=== PATIENT | female | born 1995 | race Caucasian/White ===

== ENCOUNTER 2019-06-02 09:13 | Emergency (ER) | payer MEDICAID ==
[~2019-06-02] VITALS: Ht 152.4 cm; Wt 58.5 kg
[2019-06-02 09:15] VITALS: Ht 152.4 cm; Wt 58.5 kg
[2019-06-02 09:46] VITALS: BP 119/79
== END 2019-06-02 10:46 | disposition home or self-care (01) ==
LOC: ED 09:13
DX: J20.9 Acute bronchitis, unspecified (principal)

== ENCOUNTER 2019-07-01 22:26 | Emergency (ER) | payer MEDICAID ==
[~2019-07-01] VITALS: Ht 152.4 cm; Wt 59.1 kg
[2019-07-01 22:53] VITALS: Ht 152.4 cm; Wt 59.1 kg
[2019-07-02 00:50] LABS: BASOPHIL % 0.3 % (0-2); PLATELET COUNT 198 x10^3mcL (130-400); RED CELL DISTRIBUTION WIDTH 13.5 % (11.5-14.5)
[2019-07-02 01:06] LABS: CALCIUM 9.3 mg/dL (8.5-10.1)
[2019-07-02 01:08] LABS: CARBON DIOXIDE 26.9 mmol/L (21-32); CHLORIDE SERUM 107 mmol/L (98-107); CREATININE SERUM 0.7 mg/dL (0.6-1.0); GFR1 > 60 mL/min; GLUCOSE SERUM 93 mg/dL (74-106); POTASSIUM SERUM 3.9 mmol/L (3.5-5.1); SODIUM SERUM 143 mmol/L (136-145)
[2019-07-02 01:16] LABS: ALBUMIN 4.1 g/dL (3.4-5.0); ALKALINE PHOSPHATASE 60 U/L (46-116); ALT/SGPT 19 U/L (14-59); AST/SGOT 7 U/L (15-37); BILIRUBIN TOTAL 0.25 mg/dL (0.20-1.00); T4(THYROXINE) 9.1 ug/dL (4.7-13.3); TOTAL PROTEIN, SERUM 7.5 g/dL (6.4-8.2)
[2019-07-02 02:02] VITALS: BP 104/66
== END 2019-07-02 02:14 | disposition home or self-care (01) ==
LOC: ED 22:26
PROVIDERS: Emergency Medicine
DX: R00.2 Palpitations (principal); M94.0 Chondrocostal junction syndrome [Tietze]
CPT/HCPCS: 36415; 87804

== ENCOUNTER 2019-08-12 16:26 | Emergency (ER) | payer MEDICAID ==
[~2019-08-12] VITALS: Ht 152.4 cm; Wt 5.4 kg
[2019-08-12 16:33] VITALS: BP 113/66; Ht 152.4 cm; Wt 5.4 kg
[2019-08-12 17:27] LABS: microscopic required? NO
[2019-08-12 17:40] LABS: UA SPECIFIC GRAVITY <=1.005 (1.005-1.035); urine erythrocyte NEGATIVE (NEGATIVE)
== END 2019-08-12 17:33 | disposition home or self-care (01) ==
LOC: ED 16:26
PROVIDERS: Specialist
DX: R30.0 Dysuria (principal)

== ENCOUNTER 2019-09-18 17:33 | Emergency (ER) | payer MEDICAID ==
[~2019-09-18] VITALS: Ht 152.4 cm; Wt 55.3 kg
[2019-09-18 19:38] LABS: BASOPHIL % 0.7 % (0-2); PLATELET COUNT 183 x10^3mcL (130-400)
[2019-09-18 20:12] LABS: ALBUMIN 4.3 g/dL (3.4-5.0); ALKALINE PHOSPHATASE 53 U/L (46-116); ALT/SGPT 20 U/L (14-59); AST/SGOT 15 U/L (15-37); BILIRUBIN TOTAL 0.53 mg/dL (0.20-1.00); CALCIUM 9.2 mg/dL (8.5-10.1); CARBON DIOXIDE 24.4 mmol/L (21-32); CHLORIDE SERUM 108 mmol/L (98-107); CREATININE SERUM 0.7 mg/dL (0.6-1.0); GFR1 > 60 mL/min; GLUCOSE SERUM 95 mg/dL (74-106); LIPASE 105 IU/L (73-393); POTASSIUM SERUM 3.9 mmol/L (3.5-5.1); SODIUM SERUM 143 mmol/L (136-145); TOTAL PROTEIN, SERUM 7.6 g/dL (6.4-8.2)
[2019-09-18 21:18] VITALS: BP 113/76
== END 2019-09-18 20:18 | disposition home or self-care (01) ==
LOC: ED 17:33
PROVIDERS: Emergency Medicine
DX: R10.2 Pelvic and perineal pain (principal)
CPT/HCPCS: 36415

== ENCOUNTER 2019-10-03 06:46 | Emergency (ER) | payer MEDICAID ==
[2019-10-03 06:54] VITALS: Ht 152.4 cm
[2019-10-03 07:59] VITALS: BP 104/61
== END 2019-10-03 07:59 | disposition home or self-care (01) ==
LOC: ED 06:46
DX: H92.03 Otalgia, bilateral (principal); R09.89 Other specified symptoms and signs involving the circulatory and respiratory systems; R19.7 Diarrhea, unspecified; R09.81 Nasal congestion; R20.2 Paresthesia of skin